=== PATIENT | male | born 1980 | race Caucasian/White ===

== ENCOUNTER 2017-04-05 08:34 | Emergency (ER) | payer MEDICARE, OTHER ==
[~2017-04-05] VITALS: Ht 188 cm; Wt 72.5 kg
[2017-04-05 08:38] VITALS: Ht 188 cm; Wt 72.5 kg
[2017-04-05] MEDS ORDERED: WARF5TAB72 PO (09:04)
--- NOTE | 2017-04-05 09:08 | ERD ---
ER Documentation Chief Complaint Date/Time DATE: 04/05/17 TIME: 09:06 Chief Complaint L leg swelling x 2 days HPI 36-year-old man with 15 year history of left lower extremity DVT is here requesting social service consult to see if he can get back to [place]. He states he uses warfarin daily and has his pills and wants to get his INR level checked as well. When questioned about other forms of anticoagulation such as apixaban, patient states he does not like other medications' side effects and has decided with his primary care physician to continue using warfarin ROS All systems reviewed and are negative except as per history of present illness. Medications Home Meds Active Scripts Warfarin Sodium* (Coumadin*) 5 Mg Tablet, 2.5 MG PO DAILY, #30 TAB Prov:LUCRETIA GONZALEZ MD 04/05/17 Reported Medications Olanzapine* (Zyprexa*) 10 Mg Tablet, 20 MG PO DAILY, #30 TAB 04/05/17 Allergies Allergies: Coded Allergies: acetaminophen (Unverified Adverse Reaction, Unknown, FEVER, 04/05/17) PMhx/Soc History of left lower extremity DVT, psychosis, drug abuse FmHx Family History: No diabetes Physical Exam Vitals Vital Signs Date Time Temp Pulse Resp B/P Pulse Ox O2 Delivery O2 Flow Rate FiO2 04/05/17 10:26 78 18 112/78 99 Room Air 04/05/17 08:38 97.3 108 18 163/91 98 Physical Exam GENERAL: Well-developed, well-nourished, well-hydrated, agitated HEENT: Moist mucous membranes, pink conjunctiva, no cervical spine tenderness or step-off deformities, no goiter, no jaundice or icterus, extraocular movements intact without pain. No submandibular induration, and no pharyngeal erythema NEURO: Alert and oriented 3, cranial nerves II through XII intact bilaterally, pupils equal round reactive to light, no focal deficits or facial asymmetry, sensation intact distally Strength 5/5 in upper and lower extremities bilaterally CARDIAC: Regular rate and rhythm, no murmurs rubs or gallops LUNGS: Clear bilaterally no wheezing crackles or stridor ABDOMEN: Soft nontender, no guarding, no rigidity, no rebound, no psoas sign no obturator sign. Normoactive bowel sounds SKIN: Warm and dry to touch, no abrasions, contusions, or hematomas, no lacerations, no ecchymosis, no target lesions, and without ulcers EXTREMITIES: No clubbing cyanosis or edema in the right lower extremity, left lower extremity is diffusely erythematous and swollen consistent with acute on chronic DVT. He also has bilateral stasis dermatitis changes to both lower extremities. Pulses are equal bilateral. PSYCH: Agitated Results 24 hrs Laboratory Tests Test 04/05/17 09:15 Prothrombin Time 14.0Sec Prothrombin Time Ratio 1.1 INR International Normalized Ratio 1.08 Activated Partial Thromboplast Time 27.1Sec Current Medications Medications (Trade) Dose Ordered Sig/August Route PRN Reason Start Time Stop Time Status Last Admin Dose Admin Lorazepam (Ativan) 1 mg ONCE ONCE PO 04/05/17 09:30 04/05/17 09:31 DC 04/05/17 09:24 Procedures/MDM I administered lorazepam 1 mg p.o. for agitation and an anxiety. Coagulation profile revealed an INR of 1 and subtherapeutic. Patient states he has his warfarin prescription at the facility he is staying and is readily available to him, but I did give him a prescription for warfarin so he can use as prescribed. A psychiatric social worker supervisor consultation was obtained from the emergency department, dialysis social worker spoke to the patient at length at the bedside gave him multiple verbal and written recommendations and counseling. Differential diagnoses considered, included but not limited to acute coronary syndrome, pulmonary embolism, aortic dissection, abdominal aortic aneurysm, sepsis, stroke, meningitis, encephalitis, pneumonia, appendicitis, cholecystitis , bowel obstruction, pyelonephritis, nephrolithiasis, cystitis, as well as metabolic, hematologic, and electrolyte abnormalities. As well as abscess, cellulitis, fractures, and dislocations. Patient feels much better at this time, and vital signs are normal, symptoms have improved. I did give strict instructions to return to the ED if symptoms continue or worsen, patient will otherwise follow-up with primary care physician. Patient understood instructions and agreed to plan. Disclaimer: Inadvertent spelling or grammatical errors are likely due to EHR/ dictation software use and do not reflect on the overall quality of patient care. Departure Diagnosis: Primary Impression: DVT (deep venous thrombosis) DVT location: lower extremity Affected thrombotic vein of extremity: femoral Laterality: left Chronicity: chronic Qualified Code: I82.512 - Chronic deep vein thrombosis (DVT) of femoral vein of left lower extremity Additional Impressions: Drug abuse Schizophrenia Schizophrenia type: unspecified Qualified Code: F20.9 - Schizophrenia, unspecified type Condition: Good Patient Instructions: LUCRETIA Barth MD April 05, 2017 09:08
[2017-04-05] MEDS ORDERED: OLAN10TA7 PO (09:16)
[2017-04-05] MEDS ORDERED: LORAZEPAM 1 MG TAB PO ONE (09:30)
[2017-04-05 09:52] LABS: INR 1.08; PT RATIO 1.1
[2017-04-05 09:53] LABS: PARTIAL THROMBOPLASTIN TIME 27.1 Sec (25.0-35.0)
[2017-04-05 10:26] VITALS: BP 112/78; PULSE 78; RESP 18
[2017-04-06] MEDS ORDERED: OLAN10TA7 PO (12:36)
[2017-04-06] MEDS ORDERED: WARF5TAB72 PO (12:36)
== END 2017-04-05 10:33 | disposition home or self-care (01) ==
LOC: E/R 08:34
DX: I82.512 Chronic embolism and thrombosis of left femoral vein (principal); R40.2252 Coma scale, best verbal response, oriented, at arrival to emergency department; F19.10 Other psychoactive substance abuse, uncomplicated; F20.9 Schizophrenia, unspecified; R40.2142 Coma scale, eyes open, spontaneous, at arrival to emergency department; R40.2362 Coma scale, best motor response, obeys commands, at arrival to emergency department; Z79.01 Long term (current) use of anticoagulants
CPT/HCPCS: 85610; 85730; 99283

== ENCOUNTER 2017-04-06 11:48 | Emergency (ER) | payer MEDICARE, OTHER ==
[~2017-04-06] VITALS: Ht 188 cm; Wt 72.0 kg
[~2017-04-06 11:48] MED LIST: OLAN10TA7 PO; WARF5TAB72 PO
[2017-04-06 11:50] VITALS: Ht 188 cm; Wt 72.0 kg
[2017-04-06] MEDS ORDERED: OLAN10TA7 PO (12:36)
[2017-04-06] MEDS ORDERED: WARF5TAB72 PO (12:36)
--- NOTE | 2017-04-06 15:40 | ERD ---
ER Documentation Chief Complaint Date/Time DATE: 04/06/17 TIME: 15:36 Chief Complaint need lab work for clearance to use homeless resources and medication refill HPI 36-year-old male patient with a past medical history of schizophrenia, chronic DVT since 15 years ago presents the ED complaining of misplacing his prescription for his warfarin yesterday. Patient was seen here and had a subtherapeutic INR and was discharged to follow-up with his primary care physician for further evaluation and treatment and management of his Coumadin. Patient also states that he is here for testing for TB in order to get cleared for corner house in order to take showers there. Patient is homeless. Denies any chest pain, shortness of breath, abdominal pain, nausea, vomiting, diarrhea. ROS All systems reviewed and are negative except as per history of present illness. Medications Home Meds Active Scripts Olanzapine* (Zyprexa*) 10 Mg Tablet, 10 MG PO DAILY, #20 TAB Prov:JOHNNY BISHOP PA-C 04/06/17 Warfarin Sodium* (Coumadin*) 5 Mg Tablet, 2.5 MG PO DAILY, #15 TAB Prov:JOHNNY BISHOP PA-C 04/06/17 Warfarin Sodium* (Coumadin*) 5 Mg Tablet, 2.5 MG PO DAILY, #30 TAB Prov:LUCRETIA GONZALEZ MD 04/05/17 Reported Medications Olanzapine* (Zyprexa*) 10 Mg Tablet, 20 MG PO DAILY, #30 TAB 04/05/17 Allergies Allergies: Coded Allergies: acetaminophen (Unverified Adverse Reaction, Unknown, FEVER, 04/05/17) PMhx/Soc Medical and Surgical Hx: pt denies Medical Hx, pt denies Surgical Hx Hx Alcohol Use: No Hx Substance Use: No Hx Tobacco Use: No Smoking Status: Never smoker Physical Exam Vitals Vital Signs Date Time Temp Pulse Resp B/P Pulse Ox O2 Delivery O2 Flow Rate FiO2 04/06/17 11:50 98.9 103 20 120/82 98 Physical Exam Const: [id number], well-nourished. In no acute distress. Head: Atraumatic, normocephalic Eyes: Normal Conjunctiva without injection ENT: Normal external ear, nose and mouth. Neck: Full range of motion. No meningismus. Resp: Clear to auscultation bilaterally. No wheezing, rhonchi, rales, or crackles. No accessory muscle use. No retractions. Cardio: Regular rate and rhythm, no murmurs Skin: No petechiae or rashes Back: No midline tenderness. No CVA tenderness. Ext: No cyanosis, or edema. Cap refill less than 2 seconds. Distal pulses intact bilaterally. Erythematous left lower extremity with diffuse slight erythema consistent with probable chronic DVT. Stasis dermatitis changes noted in the left lower extremity. Neur: Awake and alert. Normal gait and coordination. Muscle strength 5/5. Sensation intact bilaterally. Psych: Normal Mood and Affect Procedures/MDM This is a 36-year-old male with a past medical history of schizophrenia and chronic DVT presents to the ED for TB testing as well as a medication refill. Patient is afebrile and nontoxic-appearing. Patient has normal vital signs. Case discussed with my supervising physician, Dr. Chowdhury and who stated that we should discharge patient and refill his prescription for warfarin and Zyprexa. Patient is also strictly instructed to follow-up with primary care physician/clinic to get his TB testing in order to obtain homeless resources. She is neurovascularly intact. Patient's extremity symptoms have stabilized while they have been evaluated in the department and are appropriate for outpatient follow up. No evidence of fractures, dislocations, compartment syndrome, neurologic injury, vascular injury, open joint, open fracture, tendon laceration, septic arthritis, osteomyelitis, acute DVT, foreign body, or other emergent conditions. Discharge medications: Warfarin, Zyprexa Follow up with primary care physician in 1-2 days. Instructed patient to return to the ED sooner for any worsening symptoms. Patient's questions were answered. Patient understood and agreed with discharge plan. Patient discharged stable. Departure Diagnosis: Primary Impression: Encounter for laboratory test Additional Impression: Encounter for medication refill Condition: Stable Patient Instructions: Taking Medicine Safely, Dvt, Warfarin Sodium Oral tablet , TB Screening (Whole Blood), TB Screening (Skin) Referrals: COMMUNITY CLINICS YOU HAVE RECEIVED A MEDICAL SCREENING EXAM AND THE RESULTS INDICATE THAT YOU DO NOT HAVE A CONDITION THAT REQUIRES URGENT TREATMENT IN THE EMERGENCY DEPARTMENT. FURTHER EVALUATION AND TREATMENT OF YOUR CONDITION CAN WAIT UNTIL YOU ARE SEEN IN YOUR DOCTORS OFFICE WITHIN THE NEXT 1-2 DAYS. IT IS YOUR RESPONSIBILITY TO MAKE AN APPOINTMENT FOR FOLOW-UP CARE. IF YOU HAVE A PRIMARY DOCTOR --you should call your primary doctor and schedule an appointment IF YOU DO NOT HAVE A PRIMARY DOCTOR YOU CAN CALL OUR PHYSICIAN REFERRAL HOTLINE AT IF YOU CAN NOT AFFORD TO SEE A PHYSICIAN YOU CAN CHOSE FROM THE FOLLOWING [facility] [address] [facility] [address] [facility] [address] [facility] [address] [facility] [address] [facility]. [facility] [address] [facility]. [facility] YOU HAVE RECEIVED A MEDICAL SCREENING EXAM AND THE RESULTS INDICATE THAT YOU DO NOT HAVE A CONDITION THAT REQUIRES URGENT TREATMENT IN THE EMERGENCY DEPARTMENT. FURTHER EVALUATION AND TREATMENT OF YOUR CONDITION CAN WAIT UNTIL YOU ARE SEEN IN YOUR DOCTORS OFFICE WITHIN THE NEXT 1-2 DAYS. IT IS YOUR RESPONSIBILITY TO MAKE AN APPOINTMENT FOR FOLOW-UP CARE. IF YOU HAVE A PRIMARY DOCTOR --you should call your primary doctor and schedule and appointment IF YOU DO NOT HAVE A PRIMARY DOCTOR YOU CAN CALL OUR PHYSICIAN REFERRAL HOTLINE AT . IF YOU CAN NOT AFFORD TO SEE A PHYSICIAN YOU CAN CHOSE FROM THE FOLLOWING [facility]: [facility] [address] [place] [address] [facility] [address] [place] [address] [facility] [address] [place] [address] [facility] URGENT [facility]SPECIALTIES Additional Instructions: Call your primary care doctor TOMORROW for an appointment during the next 1-2 days for follow up care of your INR levels and coumadin for your DVT. You must follow up with a clinic/primary care doctor to obtain a labatory testing for TB. See the doctor sooner or return here if your condition worsens before your appointment time. JOHNNY BISHOP PA-C April 06, 2017 15:40
== END 2017-04-06 16:31 | disposition home or self-care (01) ==
LOC: FTE 11:48
DX: Z00.00 Encounter for general adult medical examination without abnormal findings (principal); Z79.01 Long term (current) use of anticoagulants
CPT/HCPCS: 99281